=== PATIENT | female | born 1990 | race Caucasian/White ===

== ENCOUNTER 2017-08-27 15:00 | Observation (INO) | payer OTHER ==
[~2017-08-27] VITALS: Ht 147.3 cm; Wt 95.3 kg
[2017-08-27 15:51] VITALS: BP 115/68
[2017-08-27 17:50] LABS: BARBITURATE, URINE NEG. ng/ml (NEG <=200); BENZODIAZEPINE, URINE NEG. ng/mL (NEG <=200); CANNABINOID, URINE POS. ng/mL (NEG <=50); COCAINE, URINE NEG. ng/mL (NEG <=300); OPIATE, URINE NEG. ng/mL (NEG <=2000); PHENCYCLIDINE SCREEN,URINE NEG. ng/mL (NEG <=25)
[2017-08-27] MEDS ORDERED: LACTATED RINGERS 1,000 ML IV SCH (20:25)
[2017-08-27] MEDS ORDERED: NALBUPHINE 10 MG/ML AMP IVP PRN (20:40)
[2017-08-27] MEDS ORDERED: NALBUPHINE 10 MG/ML AMP IM PRN (21:00)
[2017-08-27] MEDS ORDERED: NALBUPHINE 10 MG/ML AMP ONE (21:03)
[2017-08-28 00:59] LABS: HEMOGLOBIN 11.3 g/dL (12.0-16.0); RED BLOOD CELL COUNT(AUTO) 4.09 MIL/uL (4.20-5.40); WHITE BLOOD COUNT (AUTO) 10.3 K/uL (4.8-10.8)
[2017-08-28 01:00] LABS: MEAN CORPUSCULAR HEMOGLOBIN 28 pg (27-31); MEAN CORPUSCULAR HGB CONC 32 g/dL (33-37); MEAN CORPUSCULAR VOLUME 85.7 fL (80-94); PLATELET COUNT (AUTO) 191 K/uL (140-450); RED CELL DISTRIBUTION WIDTH 14.4 % (11.6-13.7)
[2017-08-28 01:01] LABS: BASOPHILS % (AUTO) 0.6 % (0.0-2.0); EOSINOPHILS % (AUTO) 0.5 % (0.0-4.0); LYMPHOCYTES # (AUTO) 2.6 K/uL (2.5-16.5); MONOCYTES # (AUTO) 0.7 K/uL (0.8-1.0); MONOCYTES % (AUTO) 6.3 % (1.7-9.3); NEUTROPHILS # (AUTO) 6.8 K/uL (1.8-7.7); NEUTROPHILS % (AUTO) 67.6 % (42.2-75.2)
[2017-08-28 01:02] LABS: BASOPHILS # (AUTO) 0.1 K/uL (0.00-0.22); EOSINOPHILS # (AUTO) 0.1 K/uL (0-0.4)
== END 2017-08-28 08:25 | disposition home or self-care (01) ==
LOC: MLD 15:00 → MFCC 20:10
PROVIDERS: ADMIT Obstetrics & Gynecology; ATTEND Obstetrics & Gynecology
DX: O26.893 Other specified pregnancy related conditions, third trimester (principal); R10.2 Pelvic and perineal pain; Z3A.36 36 weeks gestation of pregnancy
CPT/HCPCS: 36415; 76805; 80305; 81000; 85025; 86592; 86886; 86900; 86901; 96372; G0378; J2300; Q0092; J7120

== ENCOUNTER 2017-09-09 03:00 | Inpatient (IN) | payer OTHER ==
[~2017-09-09] VITALS: Ht 147.3 cm; Wt 90.7 kg
[2017-09-09 03:14] VITALS: BP 132/78
[2017-09-09 03:52] LABS: BASOPHILS # (AUTO) 0.1 K/uL (0.00-0.22); BASOPHILS % (AUTO) 0.4 % (0.0-2.0); EOSINOPHILS % (AUTO) 0.1 % (0.0-4.0); HEMATOCRIT 35.7 % (36-48); HEMOGLOBIN 11.9 g/dL (12.0-16.0); LYMPHOCYTES # (AUTO) 1.8 K/uL (2.5-16.5); LYMPHOCYTES % (AUTO) 12.8 % (20.5-51.1); MEAN CORPUSCULAR HEMOGLOBIN 28 pg (27-31); MEAN CORPUSCULAR HGB CONC 33 g/dL (33-37); MEAN CORPUSCULAR VOLUME 84.4 fL (80-94); MONOCYTES # (AUTO) 0.9 K/uL (0.8-1.0); MONOCYTES % (AUTO) 6.7 % (1.7-9.3); NEUTROPHILS # (AUTO) 11.1 K/uL (1.8-7.7); PLATELET COUNT (AUTO) 202 K/uL (140-450); RED BLOOD CELL COUNT(AUTO) 4.22 MIL/uL (4.20-5.40); RED CELL DISTRIBUTION WIDTH 15.5 % (11.6-13.7); WHITE BLOOD COUNT (AUTO) 13.9 K/uL (4.8-10.8)
[2017-09-09] MEDS ORDERED: OXYTOCIN 20 UNITS in LACTATED RINGERS 1,000 ML IV SCH (04:00)
[2017-09-09] MEDS ORDERED: LACTATED RINGERS 500 ML IV SCH (04:00)
[2017-09-09] MEDS ORDERED: BUPIVACAINE 0.125%/NS PREMIX 250 ML ONE (04:00)
[2017-09-09] MEDS ORDERED: OXYTOCIN 10 UNITS/ML VIAL IM SCH (04:00)
[2017-09-09] MEDS: LACTATED RINGERS 1,000 ML IV SCH ×2 (04:02→11:09)
[2017-09-09] MEDS ORDERED: OXYTOCIN 20 UNITS/LR PREMIX 1,000 ML IV ONE (06:16)
--- NOTE | 2017-09-09 06:30 | NUR ---
PATIENT HAS BEEN SCREENED AND CATEGORIZED LOW NUTRITION RISK. PATIENT WILL BE SEEN WITHIN 7 DAYS OF ADMISSION. 09/15/17 CARINA SON MS, RDN
[2017-09-09 08:21] LABS: BILIRUBIN,URINE 1+ (NEGATIVE); BLOOD, URINE NEGATIVE (NEGATIVE); COLOR,URINE YELLOW (YELLOW); LEUKOCYTE ESTERASE ,URINE 1+ (NEGATIVE); NITRITE, URINE NEGATIVE (NEGATIVE); UGLUCOSE NEGATIVE (NEGATIVE)
[2017-09-09 08:26] LABS: APPEARANCE,URINE SLIGHTLY HAZY (CLEAR)
[2017-09-09 08:34] LABS: BARBITURATE, URINE NEG. ng/ml (NEG <=200); BENZODIAZEPINE, URINE NEG. ng/mL (NEG <=200); CANNABINOID, URINE POS. ng/mL (NEG <=50); COCAINE, URINE NEG. ng/mL (NEG <=300); OPIATE, URINE NEG. ng/mL (NEG <=2000); PHENCYCLIDINE SCREEN,URINE NEG. ng/mL (NEG <=25)
[2017-09-09 08:36] LABS: RBC,URINE 0-5 (RARE) /HPF (0-5); URINE AMORPHOUS URATE 1+ /HPF (None Seen)
[2017-09-09] MEDS ORDERED: OXYTOCIN 10 UNITS/ML VIAL ONE (12:27)
[2017-09-09] MEDS ORDERED: METHYLERGONOVINE 0.2 MG/ML AMP ONE (14:14)
[2017-09-09] MEDS ORDERED: TEMAZEPAM 15 MG CAP PO PRN (15:20)
[2017-09-09] MEDS ORDERED: OXYTOCIN 10 UNITS/ML VIAL IM PRN (15:20)
[2017-09-09] MEDS ORDERED: HYDROcodone/APAP 5/325 MG 1 TAB TAB PO PRN (15:20)
[2017-09-09] MEDS ORDERED: IBUPROFEN 800 MG TAB PO PRN (15:20)
[2017-09-09] MEDS ORDERED: BENZOCAINE/MENTHOL 20%-0.5% 60 GM CAN TP PRN (15:20)
[2017-09-09] MEDS ORDERED: oxyCODONE/APAP 5/325 MG 1 TAB TAB PO PRN (15:20)
[2017-09-09] MEDS ORDERED: MEASLES, MUMPS, AND RUBELLA 1 VIAL SQVAC PRN (15:20)
[2017-09-09] MEDS ORDERED: METHYLERGONOVINE 0.2 MG/ML AMP IM PRN (15:20)
[2017-09-09] MEDS ORDERED: LACTATED RINGERS 1,000 ML IV SCH (15:35)
[2017-09-09] MEDS ORDERED: DOCUSATE SOD/SENNA 50/8.6 MG 1 TAB PO SCH (21:00)
[2017-09-10 07:00] LABS: HEMOGLOBIN 6.9 g/dL (12.0-16.0)
[2017-09-10] MEDS: FERROUS SULFATE 325 MG TABEC PO SCH ×2 (12:40→19:18)
[2017-09-11 07:07] LABS: HEMOGLOBIN 6.9 g/dL (12.0-16.0)
[2017-09-11 07:08] LABS: HEMATOCRIT 20.5 % (36-48)
[2017-09-16 12:24] LABS: RAPID PLASMA REAGIN NON-REACTIVE (Non Reactiv)
== END 2017-09-11 11:31 | disposition home or self-care (01) | DRG 560 ==
LOC: MLD 03:00 → MFCC 17:15
PROVIDERS: ADMIT Obstetrics & Gynecology; ATTEND Obstetrics & Gynecology
PROC: 10E0XZZ Delivery of Products of Conception, External Approach (ICD-10-PCS; principal; 2017-09-09)
DX: O99.214 Obesity complicating childbirth (principal); Z68.41 Body mass index [BMI] 40.0-44.9, adult; Z37.0 Single live birth; E66.9 Obesity, unspecified; Z3A.39 39 weeks gestation of pregnancy; O89.4 Spinal and epidural anesthesia-induced headache during the puerperium
CPT/HCPCS: 36415; 51702; 80305; 81001; 85018; 85025; 86592; 86886; 86900; 86901; 87086; J2210; J2590; J3490; J7120